=== PATIENT | female | born 1965 | race Caucasian/White ===

== ENCOUNTER 2020-06-28 14:19 | Emergency (ER) | payer BC ==
--- NOTE | 2020-06-28 14:59 | RAD ---
LEFT ANKLE 3 VIEWS: HISTORY: Injury left ankle pain FINDINGS: Soft tissue swelling is present. The ankle mortise is maintained. No acute fracture or dislocation is identified. A plantar calcaneal spur is present.
--- NOTE | 2020-06-28 15:55 | RAD ---
LEFT HUMERUS 2 VIEWS: Date: 06/28/2020 HISTORY: Injury. FINDINGS: No evidence of fracture or dislocation. IMPRESSION: No acute findings. POS: [facility]
== END 2020-06-28 15:50 | disposition home or self-care (01) ==
LOC: NAV ERS 14:19
DX: S93.402A Sprain of unspecified ligament of left ankle, initial encounter (principal); S40.012A Contusion of left shoulder, initial encounter; M19.90 Unspecified osteoarthritis, unspecified site; F90.9 Attention-deficit hyperactivity disorder, unspecified type; Z79.899 Other long term (current) drug therapy; W17.89XA Other fall from one level to another, initial encounter
CPT/HCPCS: 29105